=== PATIENT | male | born 1975 | race Two or more races ===

== ENCOUNTER 2025-07-19 15:39 | Emergency (ER) | payer OTHER ==
[~2025-07-19] VITALS: Ht 175.3 cm; Wt 80.7 kg
[2025-07-19 15:52] VITALS: TEMP 98.5
[2025-07-19 16:31] LABS: PLATELET COUNT (AUTO) 289 K/uL (150-450); RED BLOOD CELL COUNT(AUTO) 4.11 MIL/uL (4.5-6.0); RED CELL DISTRIBUTION WIDTH 15.4 % (11.5-15.0); WHITE BLOOD COUNT (AUTO) 12.1 K/uL (4.3-11.0)
[2025-07-19] MEDS ORDERED: KETOROLAC TROMETHAMINE INJ 30 MG/ML VIAL ONE (16:37)
[2025-07-19] MEDS ORDERED: ONDANSETRON HCL/PF 4 MG/2 ML VIAL ONE (16:37)
[2025-07-19 16:38] LABS: CALCIUM, SERUM 8.2 mg/dL (8.5-10.1); CREATININE 1.3 mg/dL (0.6-1.3); SODIUM SERUM 139.0 mmol/L (136-145); UREA NITROGEN, BLOOD 22.0 mg/dL (7-18)
[2025-07-19 16:44] LABS: ASPARTATE AMINOTRANSFERASE 25.0 U/L (15-37); TOTAL PROTEIN, SERUM 6.8 g/dL (6.4-8.2)
[2025-07-19] MEDS: IV NS 0.9% 1,000 ML BAG IV ONE (16:45)
[2025-07-19] MEDS: ONDANSETRON HCL/PF 4 MG/2 ML VIAL IVP ONE (16:45)
[2025-07-19] MEDS: KETOROLAC TROMETHAMINE 15 MG/ML VIAL IV ONE (16:45)
[2025-07-19] MEDS ORDERED: ONDA4TAB11 PO (17:27)
[2025-07-19 18:36] LABS: APPEARANCE,URINE CLEAR (CLEAR); BLOOD, URINE 1+ Ery/uL (NEGATIVE); LEUKOCYTE ESTERASE ,URINE NEGATIVE (NEGATIVE); NITRITE, URINE NEGATIVE (NEGATIVE); UGLUCOSE NEGATIVE (NEGATIVE)
[2025-07-19 18:39] LABS: ADD URINE CULTURE NO
[2025-07-19 18:40] LABS: SQUAMOUS EPITHELIAL CELL,UR None Seen /HPF (None Seen)
[2025-07-19 19:01] VITALS: BP 115/71; O2SAT 98
== END 2025-07-19 18:55 | disposition home or self-care (01) ==
LOC: ER 15:46
DX: N13.2 Hydronephrosis with renal and ureteral calculous obstruction (principal); R11.10 Vomiting, unspecified
CPT/HCPCS: 99285; 74176; 96374; 96361; 96375; 85025; 80048; 83690; 80076; 81001; 36415; J1885; J2405; J7030